=== PATIENT | male | born 1950 | race Caucasian/White ===

== ENCOUNTER 2024-09-05 13:41 | Emergency (ER) | payer MEDICARE, OTHER ==
[2024-09-05] MEDS ORDERED: Sodium Chloride 0.9% 10 ML Syringe FLUSH PRN (14:07)
[2024-09-05] MEDS: Ketorolac 30 MG/ML SDV IVPUSH ONE (14:10)
[2024-09-05] MEDS: Morphine 2 MG/ML SYRINGE IVPUSH ONE (14:12)
[2024-09-05] MEDS: Take Home: Acetaminophen/oxyCODONE 325-5 MG, 5 Tab Pack PO ONE (15:24)
== END 2024-09-05 15:35 | disposition home or self-care (01) ==
LOC: VM.ED 13:41
DX: S92.322A Displaced fracture of second metatarsal bone, left foot, initial encounter for closed fracture (principal); W18.49XA Other slipping, tripping and stumbling without falling, initial encounter
CPT/HCPCS: 29515; 73630-LT; 96374; 96375; 99283; 99283-25; A9270-GY; J1885; J2270

== ENCOUNTER 2024-10-03 04:27 | Emergency (ER) | payer MEDICARE, OTHER ==
[2024-10-03] MEDS ORDERED: Sodium Chloride 0.9% 10 ML Syringe FLUSH PRN (04:37)
[2024-10-03] MEDS: HYDROmorphone 0.5 MG/0.5 ML Syringe IVPUSH ONE ×2 (04:58→06:56)
[2024-10-03 05:02] LABS: BASOPHILS PERCENT AUTO 0.2 % (0.2-1.2); EOSINOPHILS ABSOLUTE AUTO 0.2 x10^3/uL (0.0-0.5); EOSINOPHILS PERCENT AUTO 2.1 % (0.0-4.0); HEMATOCRIT 45.1 % (40.0-52.0); HEMOGLOBIN 15.7 g/dL (14.0-18.0); IMMATURE GRAN ABSOLUTE AUTO 0.03 x10^3/uL (0.00-0.07); LYMPHOCYTES ABSOLUTE AUTO 1.7 x10^3/uL (1.0-4.8); LYMPHOCYTES PERCENT AUTO 16.1 % (25.0-50.0); MEAN CORPUSCULAR HGB CONC 34.8 g/dL (32.0-36.0); MEAN CORPUSCULAR VOLUME 86.1 fL (78.0-93.0); MONOCYTES ABSOLUTE AUTO 0.8 x10^3/uL (0.0-0.8); MONOCYTES PERCENT AUTO 7.1 % (2.0-11.0); NEUTROPHILS PERCENT AUTO 74.2 % (50.0-80.0); PLATELET COUNT,PLT 199 x10^3/uL (130-400); RED BLOOD CELL COUNT 5.24 x10^6/uL (4.5-6.0); WHITE BLOOD CELL COUNT,WBC 10.7 x10^3/uL (4.0-10.0)
[2024-10-03 05:18] LABS: A/G RATIO 0.89; ALANINE AMINOTRANSFERASE,ALT 59 U/L (16-63); ALBUMIN 3.4 g/dL (3.4-5.0); ALKALINE PHOSPHATASE 71 U/L (46-116); ASPARTATE AMNIOTRANSFERASE,AST 50 U/L (15-37); BILIRUBIN TOTAL 0.4 mg/dL (0.2-1.0); BLOOD UREA NITROGEN,BUN 14 mg/dL (7-18); CALCIUM 8.5 mg/dL (8.5-10.1); CARBON DIOXIDE,CO2 22 mmol/L (21-32); CHLORIDE,CL 104 mmol/L (98-107); CREATININE 0.8 mg/dL (0.70-1.30); ETHANOL BLOOD MEDICAL 131 mg/dL (0-3); GLUCOSE RANDOM 113 mg/dL (70-99); POTASSIUM,K 4.3 mmol/L (3.5-5.1); PROTEIN TOTAL,TP 7.2 g/dL (6.4-8.2); SODIUM,NA 138 mmol/L (136-145)
[2024-10-03 05:19] LABS: ANION GAP 16.3 mmol/L (5-15); C-REACTIVE PROTEIN < 0.50 mg/dL (<=0.50); ESTIMATED GFR 92 mL/min (>=60); PROTHROMBIN TIME 10.6 SEC (8.9-11.5); PTT,PARTIAL THROMBOPLSTIN TIME 26.7 SEC (21.9-33.8)
[2024-10-03] MEDS: Take Home: Acetaminophen/HYDROcodone 325-10 MG, 5 Tab Pack PO ONE (06:57)
[2024-10-03] MEDS: Iopamidol 612 MG/ML 100 ML Bottle IVPUSH ONE (17:05)
== END 2024-10-03 07:11 | disposition home or self-care (01) ==
LOC: VM.ED 04:27
DX: S22.41XA Multiple fractures of ribs, right side, initial encounter for closed fracture (principal); E78.00 Pure hypercholesterolemia, unspecified; I10 Essential (primary) hypertension; J45.909 Unspecified asthma, uncomplicated; E03.9 Hypothyroidism, unspecified; Z79.82 Long term (current) use of aspirin; Z79.899 Other long term (current) drug therapy; W19.XXXA Unspecified fall, initial encounter
CPT/HCPCS: 71101-RT; 80053; 80307; 85025; 85610; 85730; 86140; 96374; 96376; 99283; 99284-25; A9270-GY; J1171

== ENCOUNTER 2024-10-03 13:03 | Inpatient (IN) | payer MEDICARE, OTHER ==
[2024-10-03] MEDS: HYDROmorphone 0.5 MG/0.5 ML Syringe IVPUSH ONE ×2 (13:32→15:08)
[2024-10-03] MEDS: HYDROmorphone 1 MG/ML Syringe IVPUSH ONE (14:22)
[2024-10-03] MEDS: Iopamidol 612 MG/ML 100 ML Bottle IVPUSH ONE (17:05)
[2024-10-03] MEDS ORDERED: Polyethylene Glycol 3350 Powder 17 GM Packet PO PRN (17:26)
[2024-10-03] MEDS ORDERED: Acetaminophen 325 MG Tab PO PRN (17:26)
[2024-10-03] MEDS ORDERED: Sennosides 8.6 MG Tab PO PRN (17:41)
[2024-10-03] MEDS: HYDROmorphone 0.5 MG/0.5 ML Syringe IVPUSH PRN (18:27)
[2024-10-03] MEDS: Cyclobenzaprine 10 MG Tab PO PRN (18:27)
[2024-10-03] MEDS: oxyCODONE 5 MG Tab PO PRN (19:49)
[2024-10-03] MEDS: Formoterol/Mometasone 200-5 MCG 13 GM Inhaler INH SCH (20:41)
[2024-10-03] MEDS: Rosuvastatin 20 MG Tab PO SCH (20:42)
[2024-10-03] MEDS: Sennosides 8.6 MG Tab PO SCH (20:42)
[2024-10-03] MEDS: Montelukast 10 MG Tab PO SCH (20:43)
[2024-10-03] MEDS: Timolol Maleate 0.5% Ophth Soln 5 ML Bottle EYEBOTH SCH (20:45)
[2024-10-03] MEDS: Brimonidine 0.2% Ophth Soln 5 ML Bottle EYEBOTH SCH (20:45)
[2024-10-04] MEDS: oxyCODONE 5 MG Tab PO PRN (00:38)
[2024-10-04] MEDS: Ondansetron 4 MG Tab.DIS PO PRN (02:16)
[2024-10-04] MEDS: hydrALAZINE 20 MG/ML SDV IVPUSH PRN (02:23)
[2024-10-04] MEDS: HYDROmorphone 0.5 MG/0.5 ML Syringe IVPUSH PRN (03:38)
[2024-10-04] MEDS: Levothyroxine 25 MCG Tab PO SCH (06:16)
[2024-10-04] MEDS: Levothyroxine 112 MCG Tab PO SCH (06:16)
[2024-10-04] MEDS: Carvedilol 3.125 MG Tab PO SCH (07:27)
[2024-10-04] MEDS: Aspirin 325 MG Tab.EC PO SCH (08:17)
[2024-10-04] MEDS: Multivitamin Tab PO SCH (08:17)
[2024-10-04] MEDS: Cholecalciferol (Vitamin D3) 25 MCG Tab PO SCH (08:18)
[2024-10-04] MEDS: Ascorbic Acid 500 MG Tab PO SCH (08:18)
[2024-10-04] MEDS: Lisinopril 10 MG Tab PO SCH (08:18)
[2024-10-04 09:14] LABS: BASOPHILS PERCENT AUTO 0.2 % (0.2-1.2); EOSINOPHILS PERCENT AUTO 0.4 % (0.0-4.0); HEMATOCRIT 51.6 % (40.0-52.0); HEMOGLOBIN 17.3 g/dL (14.0-18.0); IMMATURE GRAN ABSOLUTE AUTO 0.03 x10^3/uL (0.00-0.07); LYMPHOCYTES ABSOLUTE AUTO 1.2 x10^3/uL (1.0-4.8); LYMPHOCYTES PERCENT AUTO 10.3 % (25.0-50.0); MEAN CORPUSCULAR HEMOGLOBIN 29.8 pg (26.0-32.0); MEAN CORPUSCULAR HGB CONC 33.5 g/dL (32.0-36.0); MONOCYTES ABSOLUTE AUTO 1.1 x10^3/uL (0.0-0.8); MONOCYTES PERCENT AUTO 9.6 % (2.0-11.0); NEUTROPHILS ABSOLUTE AUTO 8.9 x10^3/uL (1.8-7.7); NEUTROPHILS PERCENT AUTO 79.2 % (50.0-80.0); PLATELET COUNT,PLT 203 x10^3/uL (130-400); WHITE BLOOD CELL COUNT,WBC 11.3 x10^3/uL (4.0-10.0)
[2024-10-04 09:31] LABS: A/G RATIO 0.79; ALANINE AMINOTRANSFERASE,ALT 50 U/L (16-63); ALBUMIN 3.7 g/dL (3.4-5.0); ALKALINE PHOSPHATASE 88 U/L (46-116); ANION GAP 15.5 mmol/L (5-15); ASPARTATE AMNIOTRANSFERASE,AST 36 U/L (15-37); BILIRUBIN TOTAL 0.8 mg/dL (0.2-1.0); BLOOD UREA NITROGEN,BUN 20 mg/dL (7-18); CALCIUM 9.8 mg/dL (8.5-10.1); CARBON DIOXIDE,CO2 25 mmol/L (21-32); CHLORIDE,CL 105 mmol/L (98-107); CREATININE 1.1 mg/dL (0.70-1.30); EST CRCL DRUG DOSING (CG) 55.27 mL/min; ESTIMATED GFR 70 mL/min (>=60); ETHANOL BLOOD MEDICAL < 3 mg/dL (0-3); GLUCOSE RANDOM 170 mg/dL (70-99); MAGNESIUM 1.9 mg/dL (1.8-2.4); POTASSIUM,K 4.5 mmol/L (3.5-5.1); PROTEIN TOTAL,TP 8.4 g/dL (6.4-8.2); SODIUM,NA 141 mmol/L (136-145)
[2024-10-04] MEDS: Lidocaine 4% 1 each Patch TOP SCH (09:44)
[2024-10-04] MEDS: Polyethylene Glycol 3350 Powder 17 GM Packet PO SCH (09:47)
[2024-10-04] MEDS: Lisinopril 10 MG Tab PO ONE (10:35)
[2024-10-04] MEDS: HYDROmorphone 1 MG/ML Syringe IVPUSH PRN (16:53)
[2024-10-04] MEDS: Thiamine 100 MG Tab PO SCH (16:54)
[2024-10-04] MEDS: Folic Acid 1 MG Tab PO SCH (16:54)
[2024-10-04] MEDS: EYE EYEBOTH SCH (16:58)
[2024-10-04] MEDS: COMBIGAN EYEBOTH SCH (16:58)
[2024-10-04] MEDS: Sennosides/Docusate Sodium 50-8.6 MG Tab PO SCH (20:19)
[2024-10-04] MEDS: Albuterol 0.083% 2.5 MG/3 ML Neb Soln NEB PRN (21:51)
[2024-10-04] MEDS: LORazepam 1 MG Tab PO PRN (22:51)
[2024-10-05] MEDS: Magnesium Hydroxide 400 MG/5 ML Susp 30 ML Cup PO PRN (04:15)
[2024-10-05 07:01] LABS: BASOPHILS PERCENT AUTO 0.2 % (0.2-1.2); EOSINOPHILS ABSOLUTE AUTO 0.1 x10^3/uL (0.0-0.5); HEMATOCRIT 46.5 % (40.0-52.0); HEMOGLOBIN 15.7 g/dL (14.0-18.0); IMMATURE GRAN ABSOLUTE AUTO 0.03 x10^3/uL (0.00-0.07); LYMPHOCYTES ABSOLUTE AUTO 1.6 x10^3/uL (1.0-4.8); LYMPHOCYTES PERCENT AUTO 12.4 % (25.0-50.0); MEAN CORPUSCULAR HEMOGLOBIN 30.1 pg (26.0-32.0); MEAN CORPUSCULAR HGB CONC 33.8 g/dL (32.0-36.0); MEAN CORPUSCULAR VOLUME 89.3 fL (78.0-93.0); MONOCYTES ABSOLUTE AUTO 1.4 x10^3/uL (0.0-0.8); MONOCYTES PERCENT AUTO 11.5 % (2.0-11.0); NEUTROPHILS ABSOLUTE AUTO 9.3 x10^3/uL (1.8-7.7); NEUTROPHILS PERCENT AUTO 74.7 % (50.0-80.0); PLATELET COUNT,PLT 187 x10^3/uL (130-400); RED BLOOD CELL COUNT 5.21 x10^6/uL (4.5-6.0); WHITE BLOOD CELL COUNT,WBC 12.5 x10^3/uL (4.0-10.0)
[2024-10-05 07:31] LABS: A/G RATIO 0.77; ALBUMIN 3.4 g/dL (3.4-5.0); ANION GAP 13.7 mmol/L (5-15); BILIRUBIN TOTAL 1.3 mg/dL (0.2-1.0); CALCIUM 9.7 mg/dL (8.5-10.1); CREATININE 1.5 mg/dL (0.70-1.30); EST CRCL DRUG DOSING (CG) 40.53 mL/min; POTASSIUM,K 4.7 mmol/L (3.5-5.1); PROTEIN TOTAL,TP 7.8 g/dL (6.4-8.2); TSH ULTRASENSITIVE 5.729 uIU/mL (0.358-3.74)
[2024-10-05] MEDS: Lisinopril 20 MG Tab PO SCH (09:13)
[2024-10-05] MEDS ORDERED: Calcium Carbonate 750 MG Tab.Chew PO PRN (20:19)
[2024-10-05] MEDS: Aluminum Hydroxide/Magnesium Hydroxide/Simethicone Susp 30 ML Cup PO PRN (20:56)
[2024-10-06] MEDS: Levothyroxine 150 MCG Tab PO SCH (06:10)
[2024-10-06 06:55] LABS: BASOPHILS PERCENT AUTO 0.3 % (0.2-1.2); EOSINOPHILS ABSOLUTE AUTO 0.2 x10^3/uL (0.0-0.5); EOSINOPHILS PERCENT AUTO 1.7 % (0.0-4.0); HEMATOCRIT 44.3 % (40.0-52.0); HEMOGLOBIN 15.2 g/dL (14.0-18.0); IMMATURE GRAN ABSOLUTE AUTO 0.03 x10^3/uL (0.00-0.07); LYMPHOCYTES ABSOLUTE AUTO 1.5 x10^3/uL (1.0-4.8); LYMPHOCYTES PERCENT AUTO 12.8 % (25.0-50.0); MEAN CORPUSCULAR HEMOGLOBIN 30.2 pg (26.0-32.0); MEAN CORPUSCULAR HGB CONC 34.3 g/dL (32.0-36.0); MEAN CORPUSCULAR VOLUME 87.9 fL (78.0-93.0); MONOCYTES ABSOLUTE AUTO 1.3 x10^3/uL (0.0-0.8); MONOCYTES PERCENT AUTO 10.6 % (2.0-11.0); NEUTROPHILS ABSOLUTE AUTO 8.8 x10^3/uL (1.8-7.7); NEUTROPHILS PERCENT AUTO 74.3 % (50.0-80.0); PLATELET COUNT,PLT 185 x10^3/uL (130-400); RED BLOOD CELL COUNT 5.04 x10^6/uL (4.5-6.0); WHITE BLOOD CELL COUNT,WBC 11.8 x10^3/uL (4.0-10.0)
[2024-10-06 07:11] LABS: A/G RATIO 0.74; ALBUMIN 3.1 g/dL (3.4-5.0); BILIRUBIN DIRECT 0.47 mg/dL (0.00-0.20); BILIRUBIN TOTAL 1.4 mg/dL (0.2-1.0); CALCIUM 9.1 mg/dL (8.5-10.1); EST CRCL DRUG DOSING (CG) 60.8 mL/min; POTASSIUM,K 4.4 mmol/L (3.5-5.1); PROTEIN TOTAL,TP 7.3 g/dL (6.4-8.2)
[2024-10-06 07:12] LABS: ANION GAP 13.4 mmol/L (5-15)
[2024-10-06] MEDS: Rosuvastatin 20 MG Tab PO SCH (10:14)
[2024-10-06] MEDS: Iopamidol 612 MG/ML 30 ML SDV PO ONE (17:15)
[2024-10-06] MEDS: Iopamidol 612 MG/ML 100 ML Bottle IVPUSH ONE (17:16)
[2024-10-06] MEDS: Metoprolol Succinate 50 MG Tab.ER PO SCH (20:21)
[2024-10-07 06:53] LABS: BASOPHILS ABSOLUTE AUTO 0.1 x10^3/uL (0.0-0.2); BASOPHILS PERCENT AUTO 0.5 % (0.2-1.2); EOSINOPHILS ABSOLUTE AUTO 0.4 x10^3/uL (0.0-0.5); EOSINOPHILS PERCENT AUTO 3.5 % (0.0-4.0); HEMOGLOBIN 15.6 g/dL (14.0-18.0); IMMATURE GRAN ABSOLUTE AUTO 0.04 x10^3/uL (0.00-0.07); LYMPHOCYTES ABSOLUTE AUTO 1.8 x10^3/uL (1.0-4.8); LYMPHOCYTES PERCENT AUTO 18.2 % (25.0-50.0); MEAN CORPUSCULAR HEMOGLOBIN 29.9 pg (26.0-32.0); MEAN CORPUSCULAR HGB CONC 33.9 g/dL (32.0-36.0); MEAN CORPUSCULAR VOLUME 88.1 fL (78.0-93.0); MONOCYTES ABSOLUTE AUTO 1.1 x10^3/uL (0.0-0.8); MONOCYTES PERCENT AUTO 11.5 % (2.0-11.0); NEUTROPHILS ABSOLUTE AUTO 6.5 x10^3/uL (1.8-7.7); NEUTROPHILS PERCENT AUTO 65.9 % (50.0-80.0); PLATELET COUNT,PLT 200 x10^3/uL (130-400); RED BLOOD CELL COUNT 5.22 x10^6/uL (4.5-6.0); WHITE BLOOD CELL COUNT,WBC 9.9 x10^3/uL (4.0-10.0)
[2024-10-07 07:18] LABS: A/G RATIO 0.71; ALBUMIN 3.2 g/dL (3.4-5.0); CALCIUM 9.2 mg/dL (8.5-10.1); CREATININE 0.9 mg/dL (0.70-1.30); EST CRCL DRUG DOSING (CG) 67.56 mL/min; POTASSIUM,K 4.5 mmol/L (3.5-5.1); PROTEIN TOTAL,TP 7.7 g/dL (6.4-8.2)
[2024-10-07 07:19] LABS: ANION GAP 11.5 mmol/L (5-15)
[2024-10-07] MEDS ORDERED: HYDROmorphone 2 MG Tab PO PRN (09:08)
[2024-10-07] MEDS: Bisacodyl 10 MG Supp RECTAL ONE (09:45)
[2024-10-07] MEDS: Albuterol/Ipratropium 3.0-0.5 MG/3 ML Neb Soln NEB SCH (10:30)
== END 2024-10-07 12:00 | disposition swing bed (61) | DRG 184 ==
LOC: VM.ED 13:03 → VM.MS 15:10
PROVIDERS: ADMIT Nurse Practitioner Family; ATTEND Nurse Practitioner Family
DX: S22.41XA Multiple fractures of ribs, right side, initial encounter for closed fracture (principal); I47.10 Supraventricular tachycardia, unspecified; J96.11 Chronic respiratory failure with hypoxia; Z66 Do not resuscitate; E78.00 Pure hypercholesterolemia, unspecified; I10 Essential (primary) hypertension; Z79.890 Hormone replacement therapy; J45.909 Unspecified asthma, uncomplicated; V00.141A Fall from scooter (nonmotorized), initial encounter; F41.9 Anxiety disorder, unspecified; E03.9 Hypothyroidism, unspecified; I25.10 Atherosclerotic heart disease of native coronary artery without angina pectoris; K21.9 Gastro-esophageal reflux disease without esophagitis; E78.2 Mixed hyperlipidemia; G47.33 Obstructive sleep apnea (adult) (pediatric); R00.0 Tachycardia, unspecified; K27.9 Peptic ulcer, site unspecified, unspecified as acute or chronic, without hemorrhage or perforation; H40.9 Unspecified glaucoma; E66.9 Obesity, unspecified; K59.00 Constipation, unspecified; Z79.899 Other long term (current) drug therapy; Z79.82 Long term (current) use of aspirin; Z86.0100 Personal history of colon polyps, unspecified; I25.2 Old myocardial infarction; Z98.890 Other specified postprocedural states; Z87.891 Personal history of nicotine dependence; Z88.0 Allergy status to penicillin; Z88.1 Allergy status to other antibiotic agents; Z68.35 Body mass index [BMI] 35.0-35.9, adult; W19.XXXA Unspecified fall, initial encounter
CPT/HCPCS: 71101; 71260; 74177; 80053; 80307; 85025; 85610; 85730; 86140; 96374 ×2; 96376 ×2; 99283 ×2; 99284 ×2; A9270; J1171 ×5; 36415; 71046; 74019; 80048; 80076; 82248; 83735; 84443; 94640; 94760; 97116-GP; 97161-GP; 97165-GO; 97530-GP; 97535-GO; 99223; J0360; J7613-GY; J7620-GY; Q3014; Q9967

== ENCOUNTER 2024-10-07 09:00 | Inpatient (IN) | payer MEDICARE, OTHER ==
[2024-10-07] MEDS ORDERED: Polyethylene Glycol 3350 Powder 17 GM Packet PO PRN (11:05)
[2024-10-07] MEDS ORDERED: Magnesium Hydroxide 400 MG/5 ML Susp 30 ML Cup PO PRN (11:05)
[2024-10-07] MEDS ORDERED: Ondansetron 4 MG Tab.DIS PO PRN (11:05)
[2024-10-07] MEDS ORDERED: Albuterol 0.083% 2.5 MG/3 ML Neb Soln NEB PRN (11:05)
[2024-10-07] MEDS: Enoxaparin 40 MG/0.4 ML Syringe SUBCUT SCH (13:37)
[2024-10-07] MEDS: Omeprazole 20 MG Cap.CR PO SCH (13:37)
[2024-10-07] MEDS: Albuterol/Ipratropium 3.0-0.5 MG/3 ML Neb Soln NEB SCH (14:52)
[2024-10-07] MEDS: Formoterol/Mometasone 200-5 MCG 13 GM Inhaler INH SCH (21:47)
[2024-10-07] MEDS: Montelukast 10 MG Tab PO SCH (21:48)
[2024-10-07] MEDS: Sennosides/Docusate Sodium 50-8.6 MG Tab PO SCH (21:48)
[2024-10-07] MEDS: HYDROmorphone 2 MG Tab PO PRN (21:52)
[2024-10-08] MEDS: Aluminum Hydroxide/Magnesium Hydroxide/Simethicone Susp 30 ML Cup PO PRN (02:13)
[2024-10-08] MEDS: Levothyroxine 150 MCG Tab PO SCH (06:14)
[2024-10-08] MEDS: Cyclobenzaprine 10 MG Tab PO PRN (06:15)
[2024-10-08 06:59] LABS: BASOPHILS PERCENT AUTO 0.2 % (0.2-1.2); EOSINOPHILS ABSOLUTE AUTO 0.4 x10^3/uL (0.0-0.5); EOSINOPHILS PERCENT AUTO 4.2 % (0.0-4.0); HEMATOCRIT 45.1 % (40.0-52.0); HEMOGLOBIN 15.6 g/dL (14.0-18.0); IMMATURE GRAN ABSOLUTE AUTO 0.03 x10^3/uL (0.00-0.07); LYMPHOCYTES ABSOLUTE AUTO 1.6 x10^3/uL (1.0-4.8); LYMPHOCYTES PERCENT AUTO 18.5 % (25.0-50.0); MEAN CORPUSCULAR HEMOGLOBIN 29.8 pg (26.0-32.0); MEAN CORPUSCULAR HGB CONC 34.6 g/dL (32.0-36.0); MEAN CORPUSCULAR VOLUME 86.1 fL (78.0-93.0); MONOCYTES ABSOLUTE AUTO 0.9 x10^3/uL (0.0-0.8); MONOCYTES PERCENT AUTO 10.3 % (2.0-11.0); NEUTROPHILS ABSOLUTE AUTO 5.8 x10^3/uL (1.8-7.7); NEUTROPHILS PERCENT AUTO 66.5 % (50.0-80.0); PLATELET COUNT,PLT 208 x10^3/uL (130-400); RED BLOOD CELL COUNT 5.24 x10^6/uL (4.5-6.0); WHITE BLOOD CELL COUNT,WBC 8.8 x10^3/uL (4.0-10.0)
[2024-10-08 07:26] LABS: A/G RATIO 0.7; ANION GAP 13.5 mmol/L (5-15); BILIRUBIN TOTAL 0.9 mg/dL (0.2-1.0); CALCIUM 9.3 mg/dL (8.5-10.1); CREATININE 0.8 mg/dL (0.70-1.30); POTASSIUM,K 4.5 mmol/L (3.5-5.1); PROTEIN TOTAL,TP 7.3 g/dL (6.4-8.2)
[2024-10-08] MEDS: Polyethylene Glycol 3350 Powder 17 GM Packet PO SCH (08:36)
[2024-10-08] MEDS: Aspirin 81 MG Tab.Chew PO SCH (08:37)
[2024-10-08] MEDS: Aspirin 325 MG Tab.EC PO SCH (08:37)
[2024-10-08] MEDS: Rosuvastatin 20 MG Tab PO SCH (08:37)
[2024-10-08] MEDS: Multivitamin Tab PO SCH (08:37)
[2024-10-08] MEDS: Lidocaine 4% 1 each Patch TOP SCH (08:37)
[2024-10-08] MEDS: Ascorbic Acid 500 MG Tab PO SCH (08:38)
[2024-10-08] MEDS: Cholecalciferol (Vitamin D3) 25 MCG Tab PO SCH (08:38)
[2024-10-08] MEDS: Thiamine 100 MG Tab PO SCH (08:38)
[2024-10-08] MEDS: Folic Acid 1 MG Tab PO SCH (08:38)
[2024-10-08] MEDS: Lisinopril 20 MG Tab PO SCH (08:39)
[2024-10-08] MEDS: Metoprolol Succinate 50 MG Tab.ER PO SCH (08:39)
[2024-10-08] MEDS: Melatonin 3 MG Tab PO SCH (20:01)
[2024-10-09] MEDS: Acetaminophen 325 MG Tab PO PRN (03:44)
[2024-10-09] MEDS: Lactulose Soln 10 GM/15 ML 30 ML UD Cup PO SCH (08:39)
[2024-10-09] MEDS: LORazepam 1 MG Tab PO PRN (20:37)
[2024-10-10 14:36] LABS: HEMATOCRIT 42.2 % (40.0-52.0); HEMOGLOBIN 14.3 g/dL (14.0-18.0); MEAN CORPUSCULAR HEMOGLOBIN 29.9 pg (26.0-32.0); MEAN CORPUSCULAR HGB CONC 33.9 g/dL (32.0-36.0); MEAN CORPUSCULAR VOLUME 88.3 fL (78.0-93.0); RED BLOOD CELL COUNT 4.78 x10^6/uL (4.5-6.0); WHITE BLOOD CELL COUNT,WBC 11.6 x10^3/uL (4.0-10.0)
[2024-10-10 15:03] LABS: A/G RATIO 0.66; ALBUMIN 2.9 g/dL (3.4-5.0); BILIRUBIN TOTAL 0.4 mg/dL (0.2-1.0); CALCIUM 9.2 mg/dL (8.5-10.1); EST CRCL DRUG DOSING (CG) 60.8 mL/min; POTASSIUM,K 4.4 mmol/L (3.5-5.1); PROTEIN TOTAL,TP 7.3 g/dL (6.4-8.2)
[2024-10-10 15:04] LABS: ANION GAP 14.4 mmol/L (5-15)
[2024-10-10 15:09] LABS: BICARBONATE,VENOUS 25 mmol/L (22-29); PCO2 VENOUS 44 mmHG (41-51); PH,VENOUS 7.37 pH (7.32-7.43); PO2 VENOUS 21 mmHG
[2024-10-10 15:12] LABS: O2 SATURATION VENOUS 32 %
[2024-10-10] MEDS: Iopamidol 612 MG/ML 100 ML Bottle IVPUSH ONE (16:51)
[2024-10-11] MEDS ORDERED: Naloxone 0.4 MG/ML SDV IVPUSH PRN (04:37)
[2024-10-11] MEDS: Sodium Chloride 0.9% 1,000 ML IV ONE (04:43)
[2024-10-11] MEDS: HYDROmorphone 0.5 MG/0.5 ML Syringe IVPUSH ONE (04:50)
[2024-10-11 04:56] LABS: BASOPHILS PERCENT AUTO 0.2 % (0.2-1.2); EOSINOPHILS ABSOLUTE AUTO 0.1 x10^3/uL (0.0-0.5); EOSINOPHILS PERCENT AUTO 0.4 % (0.0-4.0); HEMOGLOBIN 9.6 g/dL (14.0-18.0); IMMATURE GRAN ABSOLUTE AUTO 0.42 x10^3/uL (0.00-0.07); LYMPHOCYTES ABSOLUTE AUTO 2.1 x10^3/uL (1.0-4.8); LYMPHOCYTES PERCENT AUTO 12.9 % (25.0-50.0); MEAN CORPUSCULAR HEMOGLOBIN 30.6 pg (26.0-32.0); MEAN CORPUSCULAR HGB CONC 34.3 g/dL (32.0-36.0); MEAN CORPUSCULAR VOLUME 89.2 fL (78.0-93.0); MONOCYTES ABSOLUTE AUTO 1.3 x10^3/uL (0.0-0.8); MONOCYTES PERCENT AUTO 8.2 % (2.0-11.0); NEUTROPHILS ABSOLUTE AUTO 12.2 x10^3/uL (1.8-7.7); NEUTROPHILS PERCENT AUTO 75.7 % (50.0-80.0); PLATELET COUNT,PLT 210 x10^3/uL (130-400); RED BLOOD CELL COUNT 3.14 x10^6/uL (4.5-6.0); WHITE BLOOD CELL COUNT,WBC 16.1 x10^3/uL (4.0-10.0)
[2024-10-11 05:20] LABS: A/G RATIO 0.77; ALBUMIN 2.3 g/dL (3.4-5.0); ANION GAP 13.6 mmol/L (5-15); BILIRUBIN TOTAL 0.3 mg/dL (0.2-1.0); CALCIUM 8.1 mg/dL (8.5-10.1); CREATININE 1.1 mg/dL (0.70-1.30); EST CRCL DRUG DOSING (CG) 55.27 mL/min; POTASSIUM,K 5.6 mmol/L (3.5-5.1); PROTEIN TOTAL,TP 5.3 g/dL (6.4-8.2)
[2024-10-11] MEDS: Sodium Chloride 0.9% 1,000 ML IV SCH (05:46)
[2024-10-11 05:57] LABS: HEMATOCRIT 25.4 % (40.0-52.0); HEMOGLOBIN 8.6 g/dL (14.0-18.0)
[2024-10-11] MEDS: Iopamidol 755 Mg/ML 100 ML Bottle IVPUSH ONE (06:08)
[2024-10-11] MEDS: 50% Dextrose in Water 50 ML Syringe IV ONE (06:45)
[2024-10-11] MEDS: Calcium Gluc in NaCl, ISO-OSM 1,000 MG in Premix Bag 1 BAG IV ONE (06:45)
[2024-10-11] MEDS: Insulin Regular, Human 100 Units/ML 10 ML Vial IVPUSH ONE (06:46)
[2024-10-11] MEDS ORDERED: Lactulose Soln 10 GM/15 ML 30 ML UD Cup PO PRN (08:54)
[2024-10-11] MEDS: HYDROmorphone 0.5 MG/0.5 ML Syringe IVPUSH PRN (09:36)
[2024-10-11] MEDS: Pantoprazole 40 MG Vial IVPUSH SCH (09:40)
[2024-10-11 09:57] LABS: HEMATOCRIT 24.9 % (40.0-52.0); HEMOGLOBIN 8.5 g/dL (14.0-18.0)
[2024-10-11 10:16] LABS: CALCIUM 8.4 mg/dL (8.5-10.1); CREATININE 1.1 mg/dL (0.70-1.30); EST CRCL DRUG DOSING (CG) 55.27 mL/min; POTASSIUM,K 4.8 mmol/L (3.5-5.1)
[2024-10-11 10:20] LABS: ANION GAP 11.8 mmol/L (5-15)
== END 2024-10-11 11:30 | disposition short-term general hospital (02) | DRG 560 ==
LOC: VM.MS 11:10 → UNDODISIN 10-11 11:30
PROVIDERS: ADMIT Internal Medicine; ATTEND Nurse Practitioner Family
DX: S22.41XD Multiple fractures of ribs, right side, subsequent encounter for fracture with routine healing (principal); D62 Acute posthemorrhagic anemia; I47.10 Supraventricular tachycardia, unspecified; K92.2 Gastrointestinal hemorrhage, unspecified; I10 Essential (primary) hypertension; E66.9 Obesity, unspecified; K59.00 Constipation, unspecified; Z66 Do not resuscitate; G47.33 Obstructive sleep apnea (adult) (pediatric); E78.5 Hyperlipidemia, unspecified; K21.9 Gastro-esophageal reflux disease without esophagitis; E87.5 Hyperkalemia; I95.9 Hypotension, unspecified; E03.9 Hypothyroidism, unspecified; D72.829 Elevated white blood cell count, unspecified; F10.20 Alcohol dependence, uncomplicated; I25.10 Atherosclerotic heart disease of native coronary artery without angina pectoris; Z68.33 Body mass index [BMI] 33.0-33.9, adult; W19.XXXD Unspecified fall, subsequent encounter
CPT/HCPCS: 36415; 70450; 74160; 74178; 80048; 80053; 82140; 82803; 82947; 83690; 84443; 84484; 85014; 85018; 85025; 85027; 93005; 93010; 94640; 94760; 97110-GP; 97530-GP; 97535-GO; A9270-GY; J1171; J1650; J2470; J3490; J7030; J7620-GY; Q9967